=== PATIENT | female | born 1960 | race Caucasian/White ===

== ENCOUNTER → 2018-04-15 | Outpatient (CLI) | payer OTHER | LOC: M.RAD 14:11 | DX: M47.814 Spondylosis without myelopathy or radiculopathy, thoracic region (principal); M51.37 Other intervertebral disc degeneration, lumbosacral region; M41.85 Other forms of scoliosis, thoracolumbar region ==

== ENCOUNTER 2021-01-23 08:20 | Inpatient (IN) | payer OTHER ==
[~2021-01-23] VITALS: Ht 160 cm; Wt 62.1 kg
[2021-01-23 08:21] VITALS: BP 84/52
[2021-01-23] MEDS ORDERED: ZANAFLEX4 M1 PO (08:25)
[2021-01-23] MEDS ORDERED: LISINOPRIL20 MG PO (08:25)
[2021-01-23] MEDS ORDERED: LIPITOR 20 MG T20 M1 PO (08:25)
[2021-01-23] MEDS ORDERED: ADDERALL 20 MG20 MG PO (08:26)
[2021-01-23 09:14] LABS: ABSOLUTE BASOPHILS 0.1 thou/uL (0.0-0.2); ABSOLUTE EOSINOPHILS 0.2 thou/uL (0.0-0.7); ABSOLUTE LYMPHOCYTES 1.5 thou/uL (0.8-5.3); ABSOLUTE MONOCYTES 0.3 thou/uL (0.0-1.2); ABSOLUTE NEUTROPHILS 10.9 thou/uL (1.6-8.1); BASOPHILS 0.5 %; EOSINOPHILS 1.4 %; HEMATOCRIT 38.1 % (37.0-47.0); HEMOGLOBIN 12.5 gm/dL (12.0-15.0); LYMPHOCYTES 11.7 %; MCH 29.8 pg (26.0-34.0); MCHC 32.9 g/dL (28.0-37.0); MCV 90.7 fL (80.0-100.0); MPV 7.3 fl. (7.2-11.1); NUCLEATED RBCS 0 /100WBC; PLATELET COUNT* 359 thou/uL (150-400); POLYS 84.4 %; RDW-CV 14.6 % (10.5-14.5); WBC 12.9 thou/uL (4.0-11.0)
[2021-01-23 09:25] LABS: CALCIUM 8.7 mg/dL (8.5-10.1); CREATININE 1.2 mg/dL (0.6-1.3)
[2021-01-23 09:27] LABS: POTASSIUM 2.7 mmol/L (3.5-5.1)
[2021-01-23 09:29] LABS: TOTAL BILIRUBIN 0.5 mg/dL (<0.1-1.0); TOTAL PROTEIN 7.1 g/dL (6.4-8.2)
[2021-01-23 10:58] LABS: URINE BILIRUBIN NEGATIVE (Negative); URINE BLOOD NEGATIVE (Negative); URINE CLARITY CLEAR; URINE COLOR YELLOW; URINE GLUCOSE-RANDOM NEGATIVE (Negative); URINE KETONES NEGATIVE (Negative); URINE LEUKOCYTES-REFLEX NEGATIVE (Negative); URINE NITRITE-REFLEX NEGATIVE (Negative); URINE PROTEIN NEGATIVE (Negative); URINE SPECIFIC GRAVITY <= 1.005 (1.005-1.030); URINE UROBILINOGEN 0.2 E.U./dl (0.2-1.0)
[2021-01-23 11:10] LABS: AMP/METHAMP POSITIVE (Negative); BARBITURATES Negative (Negative); BENZODIAZEPINES Negative (Negative); COCAINE Negative (Negative); METHADONE Negative (Negative); OPIATES Negative (Negative); PCP Negative (Negative); THC Negative (Negative)
[2021-01-23 12:25] VITALS: BP 111/67
--- NOTE | 2021-01-23 12:39 | EKG ---
[place] [address] ELECTROCARDIOGRAM REPORT Name: LAURA FORMAN Room: [address] ADM IN M.R.#: [id number] Admission: 01/23/21 Attend Phys: James Oneal Discharge: Date of : 58 Date of Service: 01/23/2128 Report #: [id number] THIS REPORT FOR: //name// [facility] ED Test Date: 2021-01-23 Test Time: 08:28:33 Pat Name: LAURA FORMAN Department: Room: [facility] Gender: F Cardiac Catheterization Technologist: lana : 1960 Requested By: Dimas Cardenas Order Number: [id number] MD: Bari Tamayo Measurements Intervals [place] Rate: 73 P: 110 W[place]: 124 QRS: 117 QRSD: 102 T: 113 QT: 461 QTc: 508 Interpretive Statements Right and left arm electrode reversal Sinus rhythm Probable left atrial enlargement Nonspecific lateral ST-T abnormalities Prolonged QT interval Baseline wander in lead(s) V3 No previous ECG available for comparison Electronically Signed On 01-23-2021 12:39:43 CDT by Bari Tamayo [email or web address] <ELECTRONICALLY SIGNED> By: Bari Tamayo MD, [facility] 01/23/21 1239 Bari Tamayo MD, [facility] /EPI
[2021-01-23 12:40] VITALS: BP 120/73
[2021-01-23 16:00] VITALS: BP 146/82
[2021-01-23 20:00] VITALS: BP 115/53
[2021-01-24 04:00] VITALS: BP 149/86
[2021-01-24 08:21] LABS: HEMATOCRIT 32.7 % (37.0-47.0); HEMOGLOBIN 10.9 gm/dL (12.0-15.0); MCH 30.5 pg (26.0-34.0); MCHC 33.3 g/dL (28.0-37.0); MCV 91.4 fL (80.0-100.0); MPV 8.1 fl. (7.2-11.1); RBC 3.57 mil/uL (4.20-5.00); RDW-CV 14.8 % (10.5-14.5); WBC 8.9 thou/uL (4.0-11.0)
[2021-01-24 09:08] LABS: CREATININE 0.7 mg/dL (0.6-1.3)
[2021-01-24 09:09] LABS: POTASSIUM 3.8 mmol/L (3.5-5.1)
== END 2021-01-24 10:00 | disposition left against medical advice (07) | DRG 872 ==
LOC: M.ERS 08:20 → M.TBA-ER 11:33 → M.2W 11:33
PROVIDERS: Emergency Medicine Emergency Medical Services; Family Medicine; ADMIT Internal Medicine; ATTEND Internal Medicine
DX: A41.9 Sepsis, unspecified organism (principal); A04.9 Bacterial intestinal infection, unspecified; Z20.822 Contact with and (suspected) exposure to COVID-19; Z79.899 Other long term (current) drug therapy; Z53.29 Procedure and treatment not carried out because of patient's decision for other reasons; E87.6 Hypokalemia; I10 Essential (primary) hypertension; F90.9 Attention-deficit hyperactivity disorder, unspecified type; F19.10 Other psychoactive substance abuse, uncomplicated